=== PATIENT | male | born 1990 | race Caucasian/White ===

== ENCOUNTER 2019-09-03 11:22 | Emergency (ER) | payer OTHER ==
--- NOTE | 2019-09-03 12:04 | ED ---
Seizure HPI - General Chief Complaint: Seizure Stated Complaint: seizures Time Seen by Provider: 09/03/19 11:38 Source: patient Mode of arrival: ambulatory Limitations: no limitations - History of Present Illness Initial Comments: patient is a 28-year-old male with past medical history of seizures, presenting to the emergency Department with complaints of seizure activity since 3 AM this morning. Patient states he sees a neurologist in [place], Dr. Buitrago. patient is supposed to take Keppra twice a day and has been on Keppra for years however he stopped taking approximately 5 days ago because he takes a liquid form and he states "it gross." Patient states he was driving and had to change over because he felt like he was shaking. Patient states he never blacked out but has been having "shaking episodes" since 3 a.m. this morning. Patient denies any pain at this time. Patient denies recent fever or chills. Patient has no other complaints at this time. Upon arrival to the ER, patient is slightly tachycardia at 114, BP is 141/101. Rest of vitals normal. - Related Data Previous Rx's Medication Instructions Recorded levETIRAcetam ORAL SOLN [Keppra 16 ml PO BID 5 Days #160 ml 09/03/19 Oral Soln] Allergies Allergy/AdvReac Type Severity Reaction Status Date / Time tramadol AdvReac Itching Verified 09/03/19 11:26 Review of Systems ROS Statement: Those systems with pertinent positive or pertinent negative responses have been documented in the HPI. ROS Other: All systems not noted in ROS Statement are negative. Past Medical History Past Medical History: Seizure Disorder Additional Past Medical History / Comment(s): TBI in 2018 History of Any Multi-Drug Resistant Organisms: None Reported Past Surgical History: Ear Surgery Past Psychological History: No Psychological Hx Reported Smoking Status: Current every day smoker Past Alcohol Use History: Occasional Past Drug Use History: None Reported General Exam - General Exam Comments Initial Comments: GENERAL: Well-appearing, well-nourished and in no acute distress. HEAD: Atraumatic, normocephalic. EYES: Pupils equal round and reactive to light, extraocular movements intact, sclera anicteric, conjunctiva are normal. ENT: TMs normal, nares patent, oropharynx clear without exudates. Moist mucous membranes. NECK: Normal range of motion, supple without lymphadenopathy or JVD. LUNGS: Breath sounds clear to auscultation bilaterally and equal. No wheezes rales or rhonchi. HEART: Regular rate and rhythm without murmurs, rubs or gallops. ABDOMEN: Soft, nontender, normoactive bowel sounds. No guarding, no rebound. No masses appreciated. : Deferred EXTREMITIES: Normal range of motion, no pitting or edema. No clubbing or cyanosis. NEUROLOGICAL: Cranial nerves II through XII grossly intact. Normal speech, normal gait. PSYCH: Normal mood, normal affect. SKIN: Warm, Dry, normal turgor, no rashes or lesions noted. Limitations: no limitations Course Vital Signs 09/03/19 09/03/19 11:26 13:22 Temperature 98.1 F 97.9 F Pulse Rate 114 H 85 Respiratory 18 20 Rate Blood Pressure 141/101 139/91 O2 Sat by Pulse 97 98 Oximetry Medical Decision Making - Medical Decision Making patient is a 28-year-old male presenting with seizure activity since 3 AM this morning. Patient sees a neurologist in [place], Dr. Morelos. Vital signs are normal. Patient stopped taking his Keppra approximately 5 days ago. EKG is normal. Lab work reveals slightly elevated liver enzymes, rest of labs show no acute abnormalities. Patient was given 1 g of Keppra and IV. I spoke to his neurologist who is okay with patient being discharged and will follow-up in his office within the next 2 days. Patient will be restarted on his Keppra at 16 mL twice a day. Patient is agreement with this plan of care.return parameters were discussed with the patient and he verbalized understanding. Case discussed with Dr. Luz. - Lab Data Result diagrams: 09/03/19 12:05 09/03/19 12:05 Lab Results 09/03/19 09/03/19 Range/Units 12:05 12:05 WBC 9.9 (3.8-10.6) k/uL RBC 5.25 (4.30-5.90) m/uL Hgb 16.3 (13.0-17.5) gm/dL Hct 46.5 (39.0-53.0) % MCV 88.7 (80.0-100.0) fL MCH 31.0 (25.0-35.0) pg MCHC 35.0 (31.0-37.0) g/dL RDW 12.4 (11.5-15.5) % Plt Count 236 (150-450) k/uL Neutrophils % 84 % Lymphocytes % 9 % Monocytes % 5 % Eosinophils % 0 % Basophils % 1 % Neutrophils # 8.3 H (1.3-7.7) k/uL Lymphocytes # 0.9 L (1.0-4.8) k/uL Monocytes # 0.5 (0-1.0) k/uL Eosinophils # 0.0 (0-0.7) k/uL Basophils # 0.1 (0-0.2) k/uL Sodium 138 (137-145) mmol/L Potassium 4.0 (3.5-5.1) mmol/L Chloride 98 (98-107) mmol/L Carbon Dioxide 31 H (22-30) mmol/L Anion Gap 9 mmol/L BUN 8 L (9-20) mg/dL Creatinine 0.71 (0.66-1.25) mg/dL Est GFR (CKD-EPI)AfAm >90 (>60 ml/min/1.73 sqM) Est GFR (CKD-EPI)NonAf >90 (>60 ml/min/1.73 sqM) Glucose 101 H (74-99) mg/dL Calcium 9.9 (8.4-10.2) mg/dL Total Bilirubin 0.9 (0.2-1.3) mg/dL AST 97 H (17-59) U/L ALT 104 H (4-49) U/L Alkaline Phosphatase 56 (38-126) U/L Total Protein 7.5 (6.3-8.2) g/dL Albumin 4.9 (3.5-5.0) g/dL - EKG Data EKG Comments: ventricular rate 92, AK interval 146, QTC 450. Abnormal QRST angle consider primary T-wave abnormality. No acute ST segment changes. Disposition Clinical Impression: Seizure Disposition: HOME SELF-CARE Instructions (If sedation given, give patient instructions): Recurrent Seizures in Adults (ED) Additional Instructions: Please return to the Emergency Department if symptoms worsen or any other concerns. Continue with Keppra as discussed. Follow-up with neurologist in the next 1-2 days. Prescriptions: levETIRAcetam ORAL SOLN [Keppra Oral Soln] 16 ml PO BID 5 Days #160 ml Is patient prescribed a controlled substance at d/c from ED?: No Referrals: None,Stated [Primary Care Provider] - 1-2 days
[2019-09-03 12:27] LABS: Basophils # (A) 0.1 k/uL (0-0.2); Basophils % (A) 1 %; Eosinophils % (A) 0 %; HCT 46.5 % (39.0-53.0); HGB 16.3 gm/dL (13.0-17.5); Lymphocytes # (A) 0.9 k/uL (1.0-4.8); Lymphocytes % (A) 9 %; MCV 88.7 fL (80.0-100.0); Mean Platelet Volume 7.8; Monocytes # (A) 0.5 k/uL (0-1.0); Monocytes % (A) 5 %; Neutrophils # (A) 8.3 k/uL (1.3-7.7); Neutrophils % (A) 84 %; Platelet Count 236 k/uL (150-450); RBC 5.25 m/uL (4.30-5.90); RDW 12.4 % (11.5-15.5); WBC 9.9 k/uL (3.8-10.6)
[2019-09-03 12:36] LABS: ALT 104 U/L (4-49); AST 97 U/L (17-59); African American GFR (CKD) >90 (>60 ml/min/1.73 sqM); Albumin 4.9 g/dL (3.5-5.0); Alkaline Phosphatase 56 U/L (38-126); Anion Gap 9 mmol/L; Blood Urea Nitrogen 8 mg/dL (9-20); Calcium 9.9 mg/dL (8.4-10.2); Carbon Dioxide 31 mmol/L (22-30); Chloride 98 mmol/L (98-107); Glucose 101 mg/dL (74-99); Non-African American GFR(CKD) >90 (>60 ml/min/1.73 sqM); Sodium 138 mmol/L (137-145); Total Bilirubin 0.9 mg/dL (0.2-1.3); Total Protein 7.5 g/dL (6.3-8.2)
[2019-09-03] MEDS ORDERED: levETIRAcetam IV 1,000 MG in SALINE 1 100ML.BAG IVPB STA (12:40)
[2019-09-03 13:23] VITALS: BP 139/91; PULSE 85; RESP 20; TEMP 97.9
== END 2019-09-03 13:32 | disposition home or self-care (01) ==
LOC: EC 11:22
DX: G40.909 Epilepsy, unspecified, not intractable, without status epilepticus (principal); R74.8 Abnormal levels of other serum enzymes; F17.200 Nicotine dependence, unspecified, uncomplicated; Z88.5 Allergy status to narcotic agent
CPT/HCPCS: 36415; 93005; 80053; 85025; 96374; 99284; J1953